=== PATIENT | female | born 1965 | race Caucasian/White ===

== ENCOUNTER 2016-05-03 18:00 | Observation (INO) | payer MEDICARE, MEDICAID ==
[2016-05-03 18:13] VITALS: BMI 35.5
[2016-05-03 18:25] LABS: AUTOMATED BASOPHIL 1.9 % (0-2); AUTOMATED EOSINOPHIL 3.2 % (0-5); AUTOMATED LYMPH 27.4 % (17-44); AUTOMATED MONOCYTE 5.1 % (3-10); AUTOMATED NEUTROPHIL 62.4 % (45-76); MPV 9.9 fL (7.4-10.4)
[2016-05-03 18:44] LABS: BLOOD UREA NITROGEN 18 MG/DL (7-17); CALCIUM 9.3 MG/DL (8.4-10.2); CALCULATED OSMOLALITY 270 MOs/Kg (270-290); CHLORIDE 103 mEq/L (98-107); GLUCOSE 99 MG/DL (70-99); PARTIAL THROMB. TIME 26.2 SEC (22-35); PT-INR 1.1; SODIUM LEVEL 139 mEq/L (137-146); TOTAL PROTEIN 8.2 G/DL (6.3-8.2)
[2016-05-03] MEDS ORDERED: LORAZEPAM 1 MG TAB PO ONE (19:02)
[2016-05-03] MEDS ORDERED: ASPIRIN 325 MG TAB PO ONE (19:02)
[2016-05-03] MEDS ORDERED: SODIUM CHLORIDE 0.9% 3 ML FLUSH FLUSH PRN (19:02)
--- NOTE | 2016-05-03 19:02 | EDPRACDOC ---
- General Information Chief Complaint: Chest Pain Stated Complaint: CHEST PAIN Time Seen by Provider: 05/03/16 18:54 Information Source: Patient Mode of Arrival: Car Home Medications: Home Medications Albuterol Sulfate [Proair Hfa] 1 - 2 puff INH Q4-6H PRN 05/04/12 Alprazolam [Xanax] 0.5 mg PO Q8H PRN 05/03/16 Amitriptyline HCl [Elavil] 10 mg PO HS 05/03/16 Budesonide/Formoterol Fumarate [Symbicort 80-4.5 Mcg Inhaler] 2 puff INH BID Fluticasone Propionate [Flonase] 2 spray LINDA DAILY 05/03/16 Gabapentin [Neurontin] 600 mg PO BID 05/03/16 Hydrocodone Bit/Acetaminophen [Burns 5-325 Tablet] 1 tab PO Q6H PRN 05/03/16 Lisinopril [Prinivil] 10 mg PO DAILY 05/03/16 Allergies/Adverse Reactions: Allergies Allergy/AdvReac Type Severity Reaction Status Date / Time morphine Allergy Itching Verified 05/03/16 18:48 Penicillins Allergy Nausea/Vomi Verified 05/03/16 18:48 ting - History of Present Illness Onset: 5 days HPI: PT PRESENTS TO ED WITH THROBBING LEFT SIDED CHEST PAIN WITH ONE EPISODE OF RADIATION TO LEFT SHOULDER 1-2 DAYS AGO. PT STATES IS INTERMITTENT IS HAVING BILATERAL UPPER EXT NUMBNESS AND TINGLING ALSO AROUND LIPS. PT STATES WHEN THE CHEST PAIN COMES SHE GETS SCARED HEART STARTS RACING GETS SOB. PT DOES HAVE KNOWN CORONARY DISEASE HAS 3 STENTS AND HTN SMOKER AND FAMILY H/O TO INCLUDE SIBLINGS. Chest Pain Location: Reports: Left Chest Pain Radiation: Reports: Shoulder (L) (X 1 EPISODE) Symptoms Occur: Reports: Suddenly (ARE INTERMITTENT) Cardiac Risk Factors: Reports: Smoker, Family History, Hypertension Cardiac History of: Reports: Cardiac Cath, Stent (X3) PE Risk Factors: Reports: None Medications within 24 Hours: Reports: None Prehospital Care: Reports: None Pain Came On: Reports: Suddenly Pain Status: Present Now Pain Description: Reports: Tightness, Other (THROBBING) Pain Severity: Moderate Pain Worsens With: Reports: Nothing Pain Improves With: Reports: Nothing Associated Signs and Symptoms: Reports: SOB, Diaphoretic, Nausea, Other (B/L UPPER AND LOWER EXT TINGLING AND PERIORAL TINGLING WITH CP EPISODES ALSO STATES HAS PALPIATIONS AND BREATHING GETS FASTER.) ED Past Medical History - History Reviewed Yes Nurses notes reviewed and agree except as marked Travel Outside of [place] in the Last 3 Months?: No - Patient Medical History Neurological History: Reports: Seizures (last one in 2007) Cardiac History: Reports: Hypertension, Heart Attack, Cardiac Catheterization ( STENT X 3, LAST CATH 3 YEARS AGO [facility]) Respiratory History: Reports: COPD Psychological History: Reports: Substance Use Disorder (THC Abuse). Denies: Depression Surgical History: Reports: Other (Amputation of leg and gastro surgery) - Social Medical History Smoking Status: Heavy tobacco smoker (5 or more cigarettes/day or daily pipe/ cigar) Social History: Reports: Substance Use Disorder (THC Abuse) ETOH: None Lives With: Other Lives In: Home EDM Review of Systems - Review of Systems ROS Negative Except as Marked: Yes All systems reviewed and were negative except as marked Constitutional: No Symptoms Reported. negative: Fever, Chills, Weakness, Fatigue, Loss of Appetite Eyes: No Symptoms Reported. negative: Redness, Blurred Vision, Double Vision, Discharge, Pain, Light Sensitive, Photophobia Ears: No Symptoms Reported. negative: Pain, Hearing Loss, Drainage, Ear Pulling Throat: No Symptoms Reported. negative: Pain, Swelling Nose: No Symptoms Reported. negative: Congestion, Bleeding, Discharge, Injection, Swelling, Deformity, Ecchymosis, Tender, Abrasion, Laceration Mouth: No Symptoms Reported. negative: Pain, Drooling Respiratory: Shortness of Breath. negative: Barky Cough, Brassy Cough, Cough, Hemoptysis, Wheezing Cardiovascular: Chest Pain. negative: Cyanosis, Edema, Orthopnea, Palpitations , PND, Syncope, Skin Mottling Gastrointestinal: No Symptoms Reported. negative: Pain, Constipation, Nausea, Vomiting, Diarrhea, Melena, Formula Intolerance Genitourinary: No Symptoms Reported. negative: Dysuria, Hematuria, Frequency, Discharge, Bleeding, Testicular Pain, Neurological: Other (PERIORAL AND B/L UPPER EXT NUMBNESS AND TINGLING WITH CP EPISODES). negative: Dizziness, Gait Difficulty, Headache, Numbness, Seizure, Speech Difficulty, Weakness Musculoskeletal: No Symptoms Reported. negative: Neck, Chestwall, Ribs, Back, Shoulder, Arm, Elbow, Forearm, Wrist, Hand, Pelvis, Hip, Femur, Knee, Leg, Ankle , Foot Integumentary: No Symptoms Reported. negative: Itching, Rash, Bruising, Wound Allergic/Immunologic: No Symptoms Reported. negative: Hives, Itching Hematologic: No Symptoms Reported. negative: Lymphadenopathy, Easy Bruising, Easy Bleeding Endocrine: No Symptoms Reported. negative: Weight Gain, Weight Loss Psychiatric: No Symptoms Reported. negative: Anxiety, Depression, Hallucinations, Insomnia, Suicidal - Physical Exam Constitutional: No apparent distress, Alert (Awake) Oriented to: Time, Person, Place Last recorded Vital Signs: Last Vital Signs Temp 98.2 F 05/03/16 18:09 Pulse 62 05/03/16 18:42 Resp 20 05/03/16 18:42 BP 171/77 05/03/16 18:42 Pulse Ox 97 05/03/16 18:42 Oxygen Pulse Oxygen Saturation 97 O2 Device Room Air Oxygen Flow Rate Fraction of Inspired Oxygen ( FIO2) - HEENT Head: Normal ( normocephalic) Eye Exam: Normal (PERRL, EOMI, Sclera white) Oropharynx: Normal (Pharynx:Moist without exudate,Gums-no swelling) Tympanic Membrane: Normal ENT EAC: Normal TMJ: Normal Nose: No Symptoms Reported (septum midline) Neck: Normal (FROM, trachea at midline) - Respiratory/Cardiovascular Respiratory: Normal - CTA (BBS clear to auscultation without adventitious sounds ) Cardiovascular: Normal (RRR without murmur, gallop or rub) - GI Auscultation: Normal (NABS) Palpation: Normal (Soft,No rebound or guarding, non distended) Tenderness: Non tender Pagan's Sign: Negative - Bladder: Normal - Musculoskeletal Back: Normal (Non-Tender) Extremities: Normal (Normal tone, Pulses 2+ No cyanosis or edema, FROM) - Integumentary Skin: Normal, Warm, Dry Lymphatics: Normal (no adenopathy) - Neurologic Memory Impaired: Normal Motor Function: Normal (Normal tone, Pulses 2+ No cyanosis or edema, FROM) Cranial Nerve: Normal (CN II-X11 intact sensation, strength 5/5) Cerebellar: Normal Mood Description: Normal Perception: Normal ED Chest Pain Exam - Respiratory/Cardiovascular Respiratory: Normal - CTA (clear to auscultation without adventitious sounds) Cardiovascular/Chest: Normal (RRR without murmur, gallop or rub) Radial Pulse: Normal Femoral Pulse: Normal Pedal Pulse: Normal Carotid Arteries: Normal Edema: 5 Chest Palpation: Normal (No chest tenderness) - Differential Diagnosis Angina, Chest wall pain, Esophageal reflux/spasm, Gastritis, Myocardial infarction, Pneumonia, Other (ANXIETY) - Action Patient received Aspirin within last 24 hours?: No ASA given in the ED: Yes Patient received Beta Marisel within last 24hrs: No - Results All Results Reviewed and Normal except as Highlighted below: Yes 05/03/16 18:17 05/03/16 18:17 WBC 10.6 xk/uL (3.8-10.8) 05/03/16 18:17 RBC 4.67 xM/uL (4.20-5.40) 05/03/16 18:17 Hgb 14.0 g/dL (12.0-16.0) 05/03/16 18:17 Hct 41.7 % (36-47) 05/03/16 18:17 MCV 89 fL (81-99) 05/03/16 18:17 MCH 30.1 pg (27-32) 05/03/16 18:17 MCHC 33.7 g/dl (33-36) 05/03/16 18:17 RDW 14.9 % (11.5-14.5) H 05/03/16 18:17 Plt Count 174 xk/uL (130-400) 05/03/16 18:17 MPV 9.9 fL (7.4-10.4) 05/03/16 18:17 Neut % (Auto) 62.4 % (45-76) 05/03/16 18:17 Lymph % (Auto) 27.4 % (17-44) 05/03/16 18:17 [place] % (Auto) 5.1 % (3-10) 05/03/16 18:17 Eos % (Auto) 3.2 % (0-5) 05/03/16 18:17 Baso % (Auto) 1.9 % (0-2) 05/03/16 18:17 Absolute Neuts (auto) 6.57 xk/uL (1.7-8.2) 05/03/16 18:17 Absolute Lymphs (auto) 2.86 xk/uL (0.65-4.75) 05/03/16 18:17 PT 11.4 SEC (9.2-11.2) H 05/03/16 18:17 INR 1.1 05/03/16 18:17 APTT 26.2 SEC (22-35) 05/03/16 18:17 Sodium 139 mEq/L (137-146) 05/03/16 18:17 Potassium 3.9 mEq/L (3.5-5.1) 05/03/16 18:17 Chloride 103 mEq/L (98-107) 05/03/16 18:17 Carbon Dioxide 25 mMOL/L (22-33) 05/03/16 18:17 Anion Gap 15 mEq/L (8-16) 05/03/16 18:17 BUN 18 MG/DL (7-17) H 05/03/16 18:17 Creatinine 0.80 MG/DL (0.52-1.04) 05/03/16 18:17 Estimated GFR (MDRD) > 60 mL/min (>=60) 05/03/16 18:17 Glucose 99 MG/DL (70-99) 05/03/16 18:17 Calculated Osmolality 270 MOs/Kg (270-290) 05/03/16 18:17 Calcium 9.3 MG/DL (8.4-10.2) 05/03/16 18:17 Total Bilirubin 0.5 MG/DL (0.2-1.3) 05/03/16 18:17 AST 38 IU/L (14-36) H 05/03/16 18:17 ALT 50 IU/L (9-52) 05/03/16 18:17 Alkaline Phosphatase 96 IU/L (38-126) 05/03/16 18:17 Troponin I < 0.01 ng/mL (<.04) 05/03/16 18:17 Unn-F-Esbiaeughld Pept 67 pg/mL (0-900) 05/03/16 18:17 Total Protein 8.2 G/DL (6.3-8.2) 05/03/16 18:17 Albumin 4.2 G/DL (3.5-5.0) 05/03/16 18:17 Lab Results 05/03/16 05/03/16 05/03/16 18:17 18:17 18:17 WBC 10.6 RBC 4.67 Hgb 14.0 Hct 41.7 MCV 89 MCH 30.1 MCHC 33.7 RDW 14.9 H Plt Count 174 MPV 9.9 Neut % (Auto) 62.4 Lymph % (Auto) 27.4 [place] % (Auto) 5.1 Eos % (Auto) 3.2 Baso % (Auto) 1.9 Absolute Neuts (auto) 6.57 Absolute Lymphs (auto) 2.86 PT 11.4 H INR 1.1 APTT 26.2 Sodium 139 Potassium 3.9 Chloride 103 Carbon Dioxide 25 Anion Gap 15 BUN 18 H Creatinine 0.80 Estimated GFR (MDRD) > 60 Glucose 99 Calculated Osmolality 270 Calcium 9.3 Total Bilirubin 0.5 AST 38 H ALT 50 Alkaline Phosphatase 96 Troponin I < 0.01 Yat-L-Rcopqnhlmgb Pept 67 Total Protein 8.2 Albumin 4.2 Laboratory Results - last 24 hr 05/03/16 05/03/16 05/03/16 18:17 18:17 18:17 WBC 10.6 RBC 4.67 Hgb 14.0 Hct 41.7 MCV 89 MCH 30.1 MCHC 33.7 RDW 14.9 H Plt Count 174 MPV 9.9 Neut % (Auto) 62.4 Lymph % (Auto) 27.4 [place] % (Auto) 5.1 Eos % (Auto) 3.2 Baso % (Auto) 1.9 Absolute Neuts (auto) 6.57 Absolute Lymphs (auto) 2.86 PT 11.4 H INR 1.1 APTT 26.2 Sodium 139 Potassium 3.9 Chloride 103 Carbon Dioxide 25 Anion Gap 15 BUN 18 H Creatinine 0.80 Estimated GFR (MDRD) > 60 Glucose 99 Calculated Osmolality 270 Calcium 9.3 Total Bilirubin 0.5 AST 38 H ALT 50 Alkaline Phosphatase 96 Troponin I < 0.01 Lsg-W-Pxqfodmlmvi Pept 67 Total Protein 8.2 Albumin 4.2 Laboratory Results 05/03/16 18:17 05/03/16 18:17 - EKG EKG #1 EKG Time: 18:04 -: Yes EKG interpreted by me Rate: bpm: 61 [place]: Normal Rhythm: NSR Block: None Hypertrophy: None ST: Normal - Diagnostic Imaging CXR Image interpreted by: Radiologist IMPRESSION: Lungs are clear and there is no evidence of acute cardiopulmonary abnormality. Chronic/incidental findings detailed above. - Additional Information HEART SCORE OF 4 (MODERATE RISK 12-16 % MACE) - Departure Disposition: Admit IP To This Hospital Condition: Stable Final Diagnosis: Chest pain Qualifiers: Chest pain type: unspecified Qualified Code(s): R07.9 - Chest pain, unspecified Education/Counseling Given To: Patient Education/Counseling Given Regarding: Diagnosis, Treatment, Prognosis, Follow Up Decision to Admit Time: 21:40 Decision to admit date: 05/03/16 Decision to admit: from ED - Physician Consulted Hospitalist Time Called: 21:40 Provider Called: Damián Barbosa (WILL ADMIT)
--- NOTE | 2016-05-03 19:17 | DIRPT ---
CLINICAL DATA: Chest pain EXAM: PORTABLE CHEST 1 VIEW COMPARISON: Chest x-ray dated 05/15/2014. FINDINGS: Heart size is upper normal, stable. Lungs are clear. Lung volumes are normal. No pleural effusions seen. No pneumothorax seen. No acute- appearing osseous abnormality. Anterior cervical fusion hardware again noted within the lower cervical spine, grossly stable in position. There is suspected chronic calcific tendinopathy of the right rotator cuff complex, incompletely imaged. IMPRESSION: Lungs are clear and there is no evidence of acute cardiopulmonary abnormality. Chronic/incidental findings detailed above. Electronically Signed By: Marc Cutler M.D. On: 05/03/2016 19:14
[2016-05-03 20:04] LABS: LEUKOCYTES/URINE NEG (NEGATIVE); NITRITE/URINE NEG (NEGATIVE); URINE OCCULT BLOOD NEG (NEG/TRACE)
[2016-05-03] MEDS ORDERED: NITROGLYCERINE 0.4 MG TAB SL ONE (20:41)
[2016-05-03] MEDS: NITROGLYCERINE 0.4 MG TAB SL PRN ×4 (20:48→22:46)
[2016-05-03] MEDS ORDERED: PROMETHAZINE 25 MG/ML VIAL IV PRN (21:10)
[2016-05-03] MEDS ORDERED: ONDANSETRON HCL 4 MG/2 ML VIAL IV PRN (21:10)
[2016-05-03] MEDS ORDERED: BENZONATATE 100 MG PERLES PO PRN (21:10)
[2016-05-03] MEDS ORDERED: TEMAZEPAM 15 MG CAP PO PRN (21:10)
[2016-05-03] MEDS ORDERED: TUSSIONEX 5 ML ORAL SYRINGE PO PRN (21:10)
[2016-05-03] MEDS ORDERED: SENNA CONCENTRATE TAB PO PRN (21:10)
[2016-05-03] MEDS ORDERED: MAGNESIUM HYDROXIDE 30 ML BOTTLE PO PRN (21:10)
[2016-05-03] MEDS ORDERED: ALBUTEROL 6.7 GM MDI INH PRN (21:13)
[2016-05-03] MEDS ORDERED: HYDROCODONE 5 MG/ACETAMIN 325 MG TAB PO PRN (21:13)
[2016-05-03] MEDS ORDERED: ALBUTEROL 0.083% 3 ML NEB NEB PRN (21:24)
[2016-05-03] MEDS ORDERED: ENOXAPARIN 60 MG/0.6 ML PFS SQ SCH (22:00)
[2016-05-03] MEDS ORDERED: NICOTINE 21 MG PATCH TOP SCH (22:00)
[2016-05-03] MEDS ORDERED: FLUTICASONE PROPIONATE 16 GM BOT NAS SCH (22:00)
[2016-05-03] MEDS ORDERED: Pharmacy Order Set Alert SCH (22:00)
[2016-05-03] MEDS: BUDESONIDE 0.5 MG NEB NEB SCH (22:34)
[2016-05-03] MEDS: ALBUTEROL 0.083% 3 ML NEB NEB SCH (22:34)
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
[2016-05-03] MEDS ORDERED: Vaccine Screening Complete SCH (23:00)
[2016-05-03] MEDS: HYDROmorphone 1 MG INJECTION IV PRN ×2 (23:02→23:58)
[2016-05-03] MEDS ORDERED: HYDROmorphone 1 MG INJECTION IV PRN (23:02)
[2016-05-03] MEDS: ALPRAZOLAM 0.5 MG TAB PO PRN (23:02)
[2016-05-03] MEDS: BuPROPion 150 MG SR TAB PO SCH (23:58)
[2016-05-04] MEDS: ALBUTEROL 0.083% 3 ML NEB NEB SCH ×3 (02:12→13:46)
[2016-05-04] MEDS: HYDROmorphone 1 MG INJECTION IV PRN ×4 (02:21→10:57)
[2016-05-04] MEDS ORDERED: CHLORHEXIDINE (HIBICLENS) 4 OZ BOTTLE TOP ONE (04:41)
[2016-05-04] MEDS ORDERED: NICOTINE 21 MG PATCH TOP SCH (05:00)
[2016-05-04] MEDS: ALPRAZOLAM 0.5 MG TAB PO PRN (05:18)
[2016-05-04 05:54] LABS: GLUCOSE 103 MG/DL (70-99)
[2016-05-04] MEDS ORDERED: MUPIROCIN 2% OINT 22 GM TUBE TOP SCH ×3 (06:00)
[2016-05-04] MEDS ORDERED: SODIUM CHLORIDE 0.9% 3 ML FLUSH FLUSH SCH (06:00)
[2016-05-04] MEDS: MUPIROCIN 2% OINT 22 GM TUBE TOP SCH ×2 (06:19→14:47)
[2016-05-04] MEDS: BUDESONIDE 0.5 MG NEB NEB SCH (07:42)
[2016-05-04] MEDS ORDERED: REGADENOSON 0.4 MG/5 ML SYRINGE IV ONE (08:00)
[2016-05-04] MEDS ORDERED: ASPIRIN (CHEWABLE) 81 MG TAB PO SCH (08:00)
[2016-05-04] MEDS ORDERED: SODIUM CHLORIDE 0.9% 10 ML FLUSH FLUSH ONE (08:00)
[2016-05-04] MEDS ORDERED: FLUTICASONE PROPIONATE 16 GM BOT NAS SCH (09:00)
[2016-05-04] MEDS ORDERED: Non-Formulary Medication ITEM (Gabapentin [Neurontin] 600 MG) PO SCH (09:00)
[2016-05-04] MEDS ORDERED: Non-Formulary Medication ITEM (Budesonide/Formoterol Fumarate [Symbicort 80-4.5 Mcg Inha INH SCH (09:00)
[2016-05-04] MEDS ORDERED: LISINOPRIL 10 MG TAB PO SCH (09:00)
[2016-05-04] MEDS ORDERED: GABAPENTIN 300 MG CAP PO SCH (09:00)
[2016-05-04] MEDS ORDERED: SESTAMIBI 8 MCI V IV ONE (09:31)
--- NOTE | 2016-05-04 10:49 | CAPUEKG ---
[place], [place] Test Date: 2016-05-04 Pat Name: IVA MORATAYA Department: Room: 426 Gender: Female Load Dispatcher: : Requested By: Order Number: Reading MD: Osvaldo Awan MD Measurements Intervals [place] Rate: 59 P: 35 MD: 150 QRS: 10 QRSD: 74 T: 23 QT: 416 QTc: 411 Interpretive Statements Sinus bradycardia Possible Inferior infarct, age undetermined Abnormal ECG Electronically Signed On 05-04-16 10:48:56 EST by Osvaldo Awan MD <[id number]> [id number]
--- NOTE | 2016-05-04 10:49 | CAPUEKG ---
[place], [place] Test Date: 2016-05-03 Pat Name: IVA MORATAYA Department: Room: 426 Gender: Female Showcase Trimmer: MARIELY : Requested By: Order Number: Reading MD: Osvaldo Awan MD Measurements Intervals [place] Rate: 65 P: 31 FL: 138 QRS: 18 QRSD: 70 T: 28 QT: 418 QTc: 434 Interpretive Statements Normal sinus rhythm Normal ECG Electronically Signed On 05-04-16 10:49:05 EST by Osvaldo Awan MD <[id number]> [id number]
[2016-05-04] MEDS: BuPROPion 150 MG SR TAB PO SCH (10:56)
[2016-05-04 11:24] VITALS: BP 144/71; TEMP 98.7
--- NOTE | 2016-05-04 13:22 | PCM.DCS92 ---
- Final/Secondary Discharge Diagnosis (1) Chest pain Acute R07.9 - CHEST PAIN, UNSPECIFIED Present on Admission: Yes unspecified I R07.9 - Chest pain, unspecified Comment: Stress test negative for ischemia. Discharge home. Follow-up with primary physician. She describes the pain as an electric shock originating from her left nipple radiating to her left shoulder. Breast exam with nursing present showed no masses. Will arrange for outpatient mammogram and follow-up with primary physician (2) Coronary artery disease Acute I25.10 - ATHSCL HEART DISEASE OF [place] CORONARY ARTERY W/O ANG PCTRS Present on Admission: Yes [place] artery ey[place] heart with other forms of angina I25.118 - Atherosclerotic heart disease of [place] coronary artery with other forms of angina pectoris Comment: Stress test negative (3) COPD (chronic obstructive pulmonary disease) Chronic J44.9 - CHRONIC OBSTRUCTIVE PULMONARY DISEASE, UNSPECIFIED Present on Admission: Yes emphysema C centrilobular J43.2 - Centrilobular emphysema Comment: Continue previous medication as ordered. (4) Obesity (BMI 30.0-34.9) Chronic E66.9 - OBESITY, UNSPECIFIED Present on Admission: Yes Comment: Weight loss is necessary. (5) Phantom limb (syndrome) Chronic G54.6 - PHANTOM LIMB SYNDROME WITH PAIN Present on Admission: Yes Comment: Continuation of previous Neurontin and analgesics as needed. (6) Pustules determined by examination Chronic L08.9 - LOCAL INFECTION OF THE SKIN AND SUBCUTANEOUS TISSUE, UNSP Present on Admission: Yes Comment: Hibiclens bath and check nares for MRSA. Will probably need Bactroban on lesions and nares. (7) Tobacco abuse Chronic Z72.0 - TOBACCO USE Present on Admission: Yes Comment: Advised to quit smoking and offered nicotine patch. Spent 7 minutes discussing issue. (8) Breast pain Acute N64.4 - [place]ST[place] Discharge Disposition: Home Discharge Condition: Improved Cognitive Discharge Status: Unimpaired Fuctional Discharge Status: Independent Physician Follow up/Referrals: Ceferino Lay Jr, MD [Primary Care Provider] - Hospital to call w/ appt. Home Medications / New Prescriptions: Continue Albuterol Sulfate [Proair Hfa] 1 - 2 puff INH Q4-6H PRN PRN Reason: Shortness Of Breath Fluticasone Propionate [Flonase] 2 spray LINDA DAILY Budesonide/Formoterol Fumarate [Symbicort 80-4.5 Mcg Inhaler] 2 puff INH BID Hydrocodone Bit/Acetaminophen [[place] 5-325 Tablet] 1 tab PO Q4 PRN PRN Reason: Pain Gabapentin [Neurontin] 600 mg PO BID Amitriptyline HCl [Elavil] 10 mg PO HS Alprazolam [Xanax] 0.5 mg PO Q8H PRN PRN Reason: Anxiety Lisinopril [Prinivil] 10 mg PO DAILY Discharge Home Medication List Albuterol Sulfate [Proair Hfa] 1 - 2 puff INH Q4-6H PRN 05/04/12 [History Confirmed 05/03/16 Last Taken 12/30/12] Alprazolam [Xanax] 0.5 mg PO Q8H PRN 05/03/16 [History Confirmed 05/03/16 Last Taken 05/02/16] Amitriptyline HCl [Elavil] 10 mg PO HS 05/03/16 [History Confirmed 05/03/16 Last Taken 05/02/16] Budesonide/Formoterol Fumarate [Symbicort 80-4.5 Mcg Inhaler] 2 puff INH BID [History Confirmed 05/03/16 Last Taken Unknown] Fluticasone Propionate [Flonase] 2 spray LINDA DAILY 05/03/16 [History Confirmed 05/03/16 Last Taken Unknown] Gabapentin [Neurontin] 600 mg PO BID 05/03/16 [History Confirmed 05/03/16 Last Taken 05/03/16] Hydrocodone Bit/Acetaminophen [[place] 5-325 Tablet] 1 tab PO Q4 PRN 05/03/16 [ History Confirmed 05/03/16 Last Taken 05/03/16 08:00] Lisinopril [Prinivil] 10 mg PO DAILY 05/03/16 [History Confirmed 05/03/16 Last Taken 05/03/16] O2 Device: Nasal Cannula Oxygen to be used after Discharge: Continuous Additional Instructions: outpatient mammogram with results to Dr. Lay Radio Electronics Technician from Dr Lay's office will call to schedule follow up appointment Diet at Discharge: Heart Healthy Activity: As Tolerated - DC Summary Notes Hospital Course Note:: Discharge summary on patient named IVA PAUL admitted to [facility] on 05/03/16 by Damián Barbosa MD. Date of discharge is []. Ms Paul is a 50-year-old white female with history of coronary artery disease and stenting in the past. She presented to the hospital with complaint of electric shock-like pain radiating from her left breast and nipple up to her shoulder and down her left arm. This had been often on the last 5 days. She was unable to state whether this was different from previous heart related pain. While her symptoms were atypical given her known disease we went ahead and admitted her to the hospital. She underwent stress testing which was negative for ischemia. With nursing present I did perform a breast exam that revealed no palpable masses. We have recommended that she get an outpatient mammogram and follow up with her primary physician. Otherwise clinically she appears well, is in no distress and is stable for discharge home. Total Time: 45 minutes - Physical Exam Vital Signs: Last Vital Signs Temp 98.7 F 05/04/16 11:24 Pulse 72 05/04/16 11:24 Resp 18 05/04/16 11:24 BP 144/71 05/04/16 11:24 Pulse Ox 96 05/04/16 11:24 Oxygen Pulse Oxygen Saturation 96 O2 Device Nasal Cannula Oxygen Flow Rate 2.5 Fraction of Inspired Oxygen ( FIO2) Constitutional: No apparent distress, Alert (Awake), Well nourished, Well appearing Oriented to: Time, Person, Place - HEENT Head: Normal Eye: Normal Oropharynx: Normal Nose: No Symptoms Reported (No nasal discharge/congestion or bleeding) - Respiratory/Cardiovascular Respiratory: Normal - CTA (clear to auscultation without adventitious sounds) Cardiovascular: Normal (RRR without murmur, gallop or rub) - GI Auscultation: Normal (NABS) Palpation: Normal (Soft,No rebound or guarding, non distended) Tenderness: Non tender Pagan's Sign: Negative - Musculoskeletal Back: Normal (Non-Tender) Extremities: Normal (Normal tone, Pulses 2+ No cyanosis or edema, FROM) - Integumentary Skin: Normal, Warm, Dry Lymphatics: Normal (no adenopathy) - Neurologic Memory Impaired: Normal Motor Function: Normal Cranial Nerve: Normal Cerebellar: Normal Mood Description: Normal Thought: Coherent Perception: Normal
--- NOTE | 2016-05-04 15:01 | PCM.STRESS ---
Nuclear stress test (Lexiscan): Indication for procedure: Chest pain. Patient was brought to the stress test room in a fasting state. IV was already inserted. The patient got connected to the hospital monitor. Blood pressure was monitored as well as pulse oximetry. Lexiscan was given during in usual fashion. That was followed by injection of radioisotope. Then patient was monitored for about 5 min. Resting heart rate was 64 beats/ min. Resting blood pressure was 130/80 mm of mercury. Resting EKG showed normal sinus rhythm, normal P interval, normal QRS complex duration morphology, nonspecific ST-T segment changes. EKG during the infusion of Lexiscan and shortly after showed no diagnostic ST segment changes. Symptoms noted during the infusion and after include mild nausea. Nuclear assessment: Resting imaging showed equal distribution of the radioisotope without any defect. Stress imaging showed equal distribution of the radioisotope without any defect. Gated imaging revealed normal contractility in all segments. The ejection fraction was 67%. Conclusions: 1. No ischemia seen on this scan. 2. Normal gated images. 3. Normal ejection fraction calculated to be of 67%..
[2016-05-04 15:06] VITALS: PULSE 70
[2016-05-04] MEDS ORDERED: ENOXAPARIN 40 MG/0.4 ML PFS SQ SCH (18:00)
[2016-05-04] MEDS ORDERED: AMITRIPTYLINE 10 MG TAB PO SCH (21:00)
[2016-05-04] MEDS ORDERED: CHLORHEXIDINE (HIBICLENS) 4 OZ BOTTLE TOP SCH (21:00)
== END 2016-05-04 17:30 | disposition home or self-care (01) ==
LOC: ED 18:00 → PCU 21:10
PROVIDERS: ADMIT Internal Medicine; ATTEND Hospitalist
DX: R07.9 Chest pain, unspecified (principal); N64.4 Mastodynia; I25.10 Atherosclerotic heart disease of native coronary artery without angina pectoris; G54.6 Phantom limb syndrome with pain; I25.2 Old myocardial infarction; Z89.512 Acquired absence of left leg below knee; Z95.5 Presence of coronary angioplasty implant and graft; J43.2 Centrilobular emphysema; E66.9 Obesity, unspecified; Z68.34 Body mass index [BMI] 34.0-34.9, adult; L08.9 Local infection of the skin and subcutaneous tissue, unspecified; F17.210 Nicotine dependence, cigarettes, uncomplicated; Z71.6 Tobacco abuse counseling; R61 Generalized hyperhidrosis; R06.02 Shortness of breath
CPT/HCPCS: 36415; 71010; 78452; 80053; 80061; 81001; 82947; 83880; 84484; 85025; 85610; 85730; 87641; 93005; 93017; 94640; 96372; 99285; 99406; A4216; A9270; A9500; G0378; J1170; J1650; J2550; J2785; J3490